=== PATIENT | female | born 1970 | race Two or more races ===

== ENCOUNTER 2018-10-22 08:30 | Outpatient (CLI) | payer OTHER | END 2018-10-22 08:32 | disposition home or self-care (01) | LOC: RAD 08:30 | DX: M53.1 Cervicobrachial syndrome (principal) ==

== ENCOUNTER 2019-01-20 09:43 | Outpatient (CLI) | payer OTHER | END 2019-01-20 09:51 | disposition home or self-care (01) | LOC: LAB 09:43 | DX: D64.89 Other specified anemias (principal); I10 Essential (primary) hypertension; E11.9 Type 2 diabetes mellitus without complications; E78.00 Pure hypercholesterolemia, unspecified; N39.0 Urinary tract infection, site not specified; E03.8 Other specified hypothyroidism; M15.0 Primary generalized (osteo)arthritis ==

== ENCOUNTER 2021-07-19 08:50 | Outpatient (CLI) | payer OTHER | END 2021-07-19 08:54 | disposition home or self-care (01) | LOC: LAB 08:50 | PROVIDERS: ATTEND Radiology Diagnostic Radiology | DX: R10.13 Epigastric pain (principal) ==